=== PATIENT | male | born 1965 | race Caucasian/White ===

== ENCOUNTER 2017-08-22 11:42 | Emergency (ER) | payer OTHER ==
[2017-08-22 11:51] VITALS: BP 147/77
--- NOTE | 2017-08-22 12:48 | UC ---
Upper Extremity HPI - HPI Summary HPI Summary: Fall about 5 days ago onto left hand. It is painful to use it. He has no weakness or numbness. - History of Current Complaint Chief Complaint: UCUpperExtremity Stated Complaint: LEFT HAND INJURY Time Seen by Provider: 08/22/17 12:22 Hx Obtained From: Patient Onset/Duration: Sudden Onset, Lasting Days Severity Initially: Moderate Severity Currently: Moderate Location Of Pain: Is Discrete @ Character: Sharp, Aching Aggravating Factor(s): Lifting, Flexion, Extension Alleviating Factor(s): Rest Associated Signs And Symptoms: Positive: Swelling - Allergies/Home Medications Allergies/Adverse Reactions: Allergies Allergy/AdvReac Type Severity Reaction Status Date / Time No Known Allergies Allergy Verified 08/22/17 11:51 Home Medications: Home Medications Ibuprofen TAB* [Motrin TAB* 600 MG] 600 mg PO Q6H PRN 08/22/17 [History Confirmed 08/22/17] PMH/Surg Hx/FS Hx/Imm Hx Previously Healthy: No - Surgical History Surgical History: Yes Surgery Procedure, Year, and Place: varicose vein removed in testicular area. back surgery 11/2011 - Family History Known Family History: Positive: Other - positive [facility] for URI - Social History Occupation: Employed Full-time Alcohol Use: Daily Alcohol Amount: 2 beers Substance Use Type: None Smoking Status (MU): Heavy Every Day Tobacco Smoker Amount Used/How Often: 1 PPD Length of Time of Smoking/Using Tobacco: STARTED ABOUT AGE 22 - Immunization History Most Recent Tetanus Shot: 2012 Review of Systems Musculoskeletal: Arthralgia, Edema All Other Systems Reviewed And Are Negative: Yes Physical Exam Triage Information Reviewed: Yes Appearance: Well-Appearing, No Pain Distress, Well-Nourished Vital Signs: Initial Vital Signs Temp 98.7 F 08/22/17 11:47 Pulse 83 08/22/17 11:47 Resp 14 08/22/17 11:47 BP 147/77 08/22/17 11:47 Vital Signs Reviewed: Yes Eyes: Positive: Conjunctiva Clear ENT: Positive: Normal ENT inspection, Hearing grossly normal Neck: Negative: Nuchal Rigidity Respiratory: Positive: No respiratory distress, No accessory muscle use Cardiovascular: Positive: Brisk Capillary Refill Abdomen Description: Negative: Distended Musculoskeletal Exam: Other - left dorsum of the hand swelling and tenderness. no finger tenderness. There is no weakness with flexion and extension of the fingers. Skin: Negative: rashes Upper Extremity Course/Dx - Course Course Of Treatment: we discussed the hand fracture in detail and the importance of follow up . He agrees. - Differential Dx/Diagnosis Provider Diagnoses: left hand metacarpal fracture. Discharge - Discharge Plan Condition: Good Disposition: HOME Patient Education Materials: Hand Fracture (ED) Referrals: Catalina Butts MD [Medical Doctor] - 1 Day
--- NOTE | 2017-08-22 13:03 | RAD ---
HISTORY: Hand pain after fall, left hand COMPARISONS: None VIEWS: 4, Frontal, lateral, and oblique views of the left hand FINDINGS: BONE DENSITY: Normal. BONES: There is an oblique slightly displaced and slightly angulated fracture of the diaphysis of the fourth metacarpal JOINTS: There is no arthropathy. ALIGNMENT: There is no dislocation. SOFT TISSUES: Unremarkable. OTHER FINDINGS: None. IMPRESSION: FOURTH METACARPAL FRACTURE.
== END 2017-08-22 12:47 | disposition home or self-care (01) ==
LOC: UCCORT 11:42
DX: S62.309A Unspecified fracture of unspecified metacarpal bone, initial encounter for closed fracture (principal); W19.XXXA Unspecified fall, initial encounter; Y92.9 Unspecified place or not applicable; F17.210 Nicotine dependence, cigarettes, uncomplicated; Z79.891 Long term (current) use of opiate analgesic
CPT/HCPCS: 99211; G0463

== ENCOUNTER 2017-08-26 13:37 | Day surgery (SDC) | payer OTHER ==
[~2017-08-26 13:37] MED LIST: Buffered Lidocaine 0.9% SYRIN* 5 ML/SYR SYRINGE INTRADERM ONE; Dexamethasone IV* 4 MG/ML 1 ML (4 MG) IV SLOW PU ONE; Famotidine IV* 10 MG/ML 2 ML (20 mg) IV ONE
[2017-08-26] MEDS ORDERED: Famotidine IV* 10 MG/ML 2 ML (20 mg) ONE (13:38)
[2017-08-26] MEDS ORDERED: Dexamethasone IV* 4 MG/ML 1 ML (4 MG) ONE (13:38)
[2017-08-26] MEDS ORDERED: ceFAZolin 2 GM PREMIX (*) 2 GM/50 ML BAG IVPB ONE (13:40)
[2017-08-26] MEDS ORDERED: Levalbuterol 0.63MG/3ML NEB* UNIT OF USE INH ONE (15:49)
[2017-08-26] MEDS ORDERED: Levalbuterol 1.25MG/0.5ML NEB ONE (15:56)
[2017-08-26] MEDS ORDERED: Atracurium* 10 MG/ML 10 ML VIAL ONE (16:04)
[2017-08-26] MEDS ORDERED: fentaNYL* 50 MCG/ML 5 ML VIAL (250 MCG VIAL) ONE (16:04)
[2017-08-26] MEDS ORDERED: Midazolam* 1 MG/ML 5 ML VIAL (5 MG) ONE (16:05)
[2017-08-26] MEDS ORDERED: Lidocaine 2% PF * 5 ML VIAL ONE (16:05)
[2017-08-26] MEDS ORDERED: Ketorolac INJ* 30 MG/ML 1 ML VIAL ONE (16:05)
[2017-08-26] MEDS ORDERED: Ondansetron INJ* 2 MG/ML VIAL ONE (16:05)
[2017-08-26] MEDS ORDERED: Propofol* 10 MG/ML 20 ML BTL IV PUSH ONE (16:05)
[2017-08-26] MEDS ORDERED: Bupivacaine 0.25% SDV* 30 ML ONE (16:20)
[2017-08-26] MEDS ORDERED: Glycopyrrolate IV* 0.2 MG/ML 1 ML VIAL ONE (16:32)
[2017-08-26] MEDS ORDERED: Ondansetron INJ* 2 MG/ML VIAL IV PRN (16:36)
[2017-08-26] MEDS ORDERED: HYDROmorphone INJ* 1 MG/ML CARPUJECT SYRINGE IV PRN (16:36)
[2017-08-26] MEDS ORDERED: DiMENhydriNATE IV* 50 MG/ML VIAL IV PUSH PRN (16:36)
[2017-08-26] MEDS ORDERED: fentaNYL* 50 MCG/ML 2 ML VIAL (100 MCG VIAL) IV PRN (16:36)
[2017-08-26] MEDS ORDERED: Scopolamine 1.5 mg* PATCH TRANSDERM PRN (16:36)
[2017-08-26] MEDS ORDERED: fentaNYL* 50 MCG/ML 2 ML VIAL (100 MCG VIAL) ONE (16:45)
[2017-08-26] MEDS ORDERED: oxyCODONE/Acetamin 5/325 MG* TAB ONE (18:14)
[2017-08-26] MEDS: oxyCODONE/Acetamin 5/325 MG* TAB PO PRN ×2 (18:15→18:16)
[2017-08-26 18:54] VITALS: BP 133/80
--- NOTE | 2017-08-27 08:22 | RAD ---
INDICATION: Traumatic fracture left fourth metacarpal-ORIF COMPARISON: August 22, 2017 FINDINGS: 7.6 seconds of fluoroscopy were provided for the orthopedics department. Fluoroscopic spot imaging of the left hand were obtained for operative control and show ORIF of the fourth metacarpal fracture with application of a cortical plate and screws. Fracture fragments are in anatomic position. . CPT II Codes: 6045F (fluoro time doc)
--- NOTE | 2017-08-27 15:32 | OP ---
OPERATIVE REPORT: DATE OF OPERATION: 08/26/17 DATE OF : 69 SURGEON: Griffin Gomez MD AUTOMATIC CENTRIFUGAL STATION OPERATOR: BENJAMIN Frias An family law legal assistant was needed for the procedure to aid in positioning of the arm, retraction, and instrumentation. ANESTHESIOLOGIST: Franck Marie MD ANESTHESIA: General. PRE-OP DIAGNOSIS: Left displaced 4th metacarpal shaft fracture. POST-OP DIAGNOSIS: Left displaced 4th metacarpal shaft fracture. OPERATIVE PROCEDURE: Open reduction and internal fixation of left 4th metacarpal shaft fracture. INDICATIONS: Checo has a left 4th metacarpal shaft fracture that is quite displaced and shortened. I talked about his options. He wanted to proceed with surgery. He understands the risks of stiffness and tendon adhesions as well as loss of fixation, malunion or nonunion. ESTIMATED BLOOD LOSS: 2 mL. COMPLICATIONS: None. FINDINGS: As expected. DESCRIPTION OF PROCEDURE: Checo was seen in the preoperative holding area. The correct side, site, and procedure were identified. We came back to the operating room and the arm was prepped and draped in the usual fashion and a time-out was performed. I began by exsanguinating the arm with the Esmarch and the tourniquet was inflated to 250 mmHg. An incision was made longitudinally over the 4th metacarpal. Dissection was carried down longitudinally preserving the dorsal sensory nerves and the dorsal veins to the paratenon. I developed the interval between the 3rd and 4th EDC tendons. The dorsal periosteum was incised longitudinally. The soft callus was debrided back to clean and healthy bone edges. [id number] clamp was used to reduce the fracture. I then placed a 1.5-mm countersunk lag screw in standard fashion. This provided excellent compression. I then placed a 1.5-mm Synthes variable angle handset plate on the dorsum of the 4th metacarpal. This was secured with a mixture of 1.5-mm cortical screws distally and 1.5-mm variable angle locking screws proximally. I did place 1 lag screw through the plate. Again, these were all 1.5-mm screws and this was the Synthes variable angle handset. Final fluoroscopy showed excellent alignment. The wound was irrigated out. I closed the periosteal layer with 4-0 Prolene suture with the knots buried. Skin was closed with 4-0 nylon suture. The operative site was then infiltrated with 0.25% plain Marcaine. Wound was dressed with Xeroform, 4x4's, sterile Webril, and a splint was applied volarly out to the level of the PIP joints. He was then woken up and taken to the recovery room in stable condition. [id number]/[facility] #: [id number] SAIMA
[2017-08-29] MEDS ORDERED: Scopolamine PATCH Remove* 1 NOTE MISC PATCH OFF ONE (16:37)
== END 2017-08-26 18:55 | disposition home or self-care (01) ==
LOC: OR 13:37
PROVIDERS: ATTEND Orthopaedic Surgery Hand Surgery
DX: S62.325A Displaced fracture of shaft of fourth metacarpal bone, left hand, initial encounter for closed fracture (principal); W19.XXXA Unspecified fall, initial encounter; Y92.9 Unspecified place or not applicable; F17.210 Nicotine dependence, cigarettes, uncomplicated
CPT/HCPCS: 76000; A9270-GY; C1713; C1776; J0690; J1100; J1885; J2250; J2405; J2704; J3010

== ENCOUNTER 2017-12-21 07:35 | Emergency (ER) | payer OTHER ==
[2017-12-21 07:48] VITALS: BP 145/85
--- NOTE | 2017-12-21 07:57 | UC ---
Respiratory Complaint HPI - HPI Summary HPI Summary: cough x 7 days cough is productive with white sputum + sore throat, nasal congestion , no fever, + chills, no wheezing or sob - History of Current Complaint Chief Complaint: UCRespiratory Stated Complaint: COLD SYMPTOMS Time Seen by Provider: 12/21/17 07:39 Hx Obtained From: Patient Onset/Duration: Gradual Onset, Lasting Days - 7, Still Present Severity Initially: Moderate Severity Currently: Moderate Pain Intensity: 4 Character: Cough: Productive Aggravating Factors: Exertion, Deep Breaths Alleviating Factors: Nothing Associated Signs And Symptoms: Positive: Chills, URI, Nasal Congestion. Negative: Fever, Pleuritic Chest Pain, Wheezing, Hemoptysis, Dizziness, Calf Pain, Calf Swelling, Hoarseness - Allergies/Home Medications Allergies/Adverse Reactions: Allergies Allergy/AdvReac Type Severity Reaction Status Date / Time No Known Allergies Allergy Verified 08/26/17 13:37 PMH/Surg Hx/FS Hx/Imm Hx - Additional Past Medical History Additional PMH: lower back pain - Surgical History Surgical History: Yes Surgery Procedure, Year, and Place: L5-S1 discectomy - [place] 2012. varicocele surgery - [place] 20 yrs ago. LEFT HAND SURGERY 2016 - Family History Known Family History: Positive: Other - positive [facility] for URI Negative: Diabetes - Social History Alcohol Use: Weekly Alcohol Amount: 2 beers per day Substance Use Type: None Smoking Status (MU): Heavy Every Day Tobacco Smoker Type: Cigarettes Amount Used/How Often: 1 PPD for 30 years Length of Time of Smoking/Using Tobacco: STARTED ABOUT AGE 22 Household Exposure Type: Cigarettes - Immunization History Most Recent Tetanus Shot: 2012 Review of Systems Constitutional: Negative Skin: Negative Eyes: Negative ENT: Negative Respiratory: Negative Cardiovascular: Negative Is Patient Immunocompromised?: No All Other Systems Reviewed And Are Negative: Yes Physical Exam Triage Information Reviewed: Yes Appearance: Well-Appearing, No Pain Distress, Well-Nourished Vital Signs: Initial Vital Signs Temp 99.4 F 12/21/17 07:42 Pulse 80 12/21/17 07:42 Resp 20 12/21/17 07:42 BP 145/85 12/21/17 07:42 Pulse Ox 96 12/21/17 07:42 Vital Signs Reviewed: Yes Eyes: Positive: Conjunctiva Clear ENT: Positive: Normal ENT inspection, Hearing grossly normal, Pharyngeal erythema, Nasal drainage Neck: Positive: Supple, Nontender, No Lymphadenopathy Respiratory: Positive: Chest non-tender, Lungs clear, Normal breath sounds, No respiratory distress. Negative: No accessory muscle use, Respiratory distress Cardiovascular: Positive: RRR, No Murmur, Pulses Normal Abdominal Exam: Normal Skin Exam: Normal UC Diagnostic Evaluation - Laboratory O2 Sat by Pulse Oximetry: 96 Respiratory Course/Dx - Differential Dx/Diagnosis Provider Diagnoses: Bronchitis Discharge - Discharge Plan Condition: Stable Disposition: HOME Prescriptions: Azithromycin TAB* [Zithromax TAB (Z-JASBIR) 250 mg #6 tabs] 2 tab PO .TODAY, THEN 1 DAILY #1 jasbir Benzonatate CAP* [Tessalon 100 MG CAP*] 100 mg PO TID #21 cap Patient Education Materials: Acute Bronchitis (ED) Referrals: Franck Barros MD [Primary Care Provider] - 7 Days
== END 2017-12-21 07:59 | disposition home or self-care (01) ==
LOC: UCCORT 07:35
DX: J40 Bronchitis, not specified as acute or chronic (principal); F17.210 Nicotine dependence, cigarettes, uncomplicated
CPT/HCPCS: 99212; G0463

== ENCOUNTER 2018-06-25 09:43 | Emergency (ER) | payer OTHER ==
[2018-06-25 10:09] VITALS: BP 159/96
--- NOTE | 2018-06-25 10:25 | UC ---
Headache HPI - HPI Summary HPI Summary: 53-year-old man presents with complaints of frontal headache for a little over a week. Describes the headache as constant severe pressure. Associated with nasal congestion, nasal discharge, and a nonproductive cough. Has taken over- the-counter ibuprofen with minimal relief. Denies fever, chills, ear pain or pressure, sore throat, dizziness or vertigo, visual disturbances, facial droop, slurred speech, extremity weakness, numbness, or tingling, chest pain, shortness of breath, abdominal pain, nausea or vomiting. He is a pack-a-day smoker. - History Of Current Complaint Chief Complaint: UCHeadache Stated Complaint: HEADACHE x1 WEEK Time Seen by Provider: 06/25/18 10:19 Hx Obtained From: Patient Onset/Duration: Gradual Onset, Lasting Days Initially Headache Was: Mild Currently Pain Is: Moderate Pain Intensity: 7 Timing: Constant Character: Pressure Location of Headache: Frontal Aggravating Factor(s): Nothing Allevating Factor(s): Nothing Associated Signs And Symptoms: Positive: Sinus Pressure. Negative: Dizziness, Nausea, Vomiting, Fever, Neck Pain, Neck Stiffness, Decreased LOC, Visual Changes - Allergies/Home Medications Allergies/Adverse Reactions: Allergies Allergy/AdvReac Type Severity Reaction Status Date / Time No Known Allergies Allergy Verified 06/25/18 10:05 PMH/Surg Hx/FS Hx/Imm Hx - Additional Past Medical History Additional PMH: Noncontributory - Surgical History Surgical History: Yes Surgery Procedure, Year, and Place: L5-S1 discectomy - [place] 2012. varicocele surgery - [place] 20 yrs ago. LEFT HAND SURGERY 2017 - Family History Family History: Noncontributory - Social History Occupation: Employed Full-time Lives: With Family Alcohol Use: Occasionally Alcohol Amount: 2 beers per day Substance Use Type: None Smoking Status (MU): Heavy Every Day Tobacco Smoker Type: Cigarettes Amount Used/How Often: 1 PPD for 30 years Length of Time of Smoking/Using Tobacco: STARTED ABOUT AGE 22 Household Exposure Type: Cigarettes - Immunization History Most Recent Tetanus Shot: 2012 Review of Systems Constitutional: Negative Skin: Negative Eyes: Negative ENT: Nasal Discharge, Sinus Congestion, Sinus Pain/Tenderness Respiratory: Cough - Nonproductive Cardiovascular: Negative Gastrointestinal: Negative Is Patient Immunocompromised?: No All Other Systems Reviewed And Are Negative: Yes Physical Exam Triage Information Reviewed: Yes Appearance: Well-Appearing, No Pain Distress, Well-Nourished Vital Signs: Initial Vital Signs Temp 98.6 F 06/25/18 10:05 Pulse 73 06/25/18 10:05 Resp 19 06/25/18 10:05 BP 159/96 06/25/18 10:05 Pulse Ox 99 06/25/18 10:05 Vital Signs Reviewed: Yes Eyes: Positive: Conjunctiva Clear. Negative: Discharge ENT: Positive: Nasal congestion, Nasal drainage, TMs normal, Sinus tenderness - Frontal, Uvula midline, Other - Pharyngeal cobblestoning. Negative: Tonsillar swelling, Tonsillar exudate, Trismus, Muffled voice, Hoarse voice Neck: Positive: Supple, Nontender, No Lymphadenopathy Respiratory: Positive: Chest non-tender, Lungs clear, Normal breath sounds, No respiratory distress Cardiovascular: Positive: RRR, No Murmur Neurological: Positive: Alert Skin Exam: Normal Headache Course/Dx - Course Course Of Treatment: 53-year-old male with complaint of frontal headache for over a week. Associated with nasal congestion, nasal discharge, and a nonproductive cough. Afebrile. Nontoxic in appearance. Patient is a pack-a- day smoker. With patient's persistent symptoms and smoking history there is a high suspicion this may be a bacterial sinusitis. Will start him on Augmentin twice a day 10 days. Also recommend symptomatic treatment including saline rinses, steroid nasal spray, and [id number] analgesics. His blood pressure was noted to be elevated in the clinic today therefore advising him not to use NSAIDs or decongestants at this time. I have recommended he follow up with his primary care provider in a week to have the blood pressure rechecked. - Differential Dx/Diagnosis Differential Diagnosis/HQI/PQRI: Migraine, Sinus Headache, Tension Headache Provider Diagnoses: acute frontal sinusitis, elevated blood pressure Discharge - Sign-Out/Discharge Documenting (check all that apply): Patient Departure All imaging exams completed and their final reports reviewed: No Studies - Discharge Plan Condition: Stable Disposition: HOME Prescriptions: Amoxicillin/Clavulanate TAB* [Augmentin TAB 875*] 875 mg PO BID #20 tab Fluticasone NASAL SPRAY 50MCG* [Flonase NASAL SPRAY 50MCG*] 2 spray BOTH NARES DAILY #1 btl Patient Education Materials: Sinusitis (ED) Referrals: Franck Barrso MD [Primary Care Provider] - 7 Days (Recheck blood pressure) Additional Instructions: Start Augmentin 1 tab twice daily for 10 days. Be sure to complete the entire course of antibiotic even if you are feeling better. Use fluticasone (Flonase) nasal spray 2 sprays each nostril once daily. I recommend using a saline nasal rinse (Netti Pot, Colton Med) twice daily to help thin secretions and promote drainage. You may take acetaminophen (Tylenol) according to directions for pain. Your blood pressure in the clinic today was elevated. You should schedule an appointment with your primary care provider to have this rechecked within 1 week. - Billing Disposition and Condition Condition: STABLE Disposition: Home
== END 2018-06-25 10:44 | disposition home or self-care (01) ==
LOC: UCCORT 09:43
DX: J01.10 Acute frontal sinusitis, unspecified (principal); R03.0 Elevated blood-pressure reading, without diagnosis of hypertension; F17.210 Nicotine dependence, cigarettes, uncomplicated
CPT/HCPCS: 99212; G0463